=== PATIENT | male | born 1985 | race Caucasian/White ===

== ENCOUNTER 2016-12-17 11:17 | Emergency (ER) | payer SELFPAY ==
[~2016-12-17] VITALS: Ht 177.8 cm; Wt 104.2 kg
[~2016-12-17 11:17] MED LIST: HYDR-3533 PO; RANI150 PO; ZOFR4TAB3 PO
[2016-12-17 11:22] VITALS: BP 141/89; PULSE 70; RESP 16; TEMP 97.3; O2SAT 99
--- NOTE | 2016-12-17 11:55 | PD ---
HPI Chief Complaint: Injury Time Seen by Provider: 11:52 Travel History International Travel<30 days: No Contact w/Intl Traveler<30days: No Traveled to known affect area: No History of Present Illness HPI Patient presents with complaints of right shoulder pain. States he was riding skateboard last night when he swerved to miss a car and rolled onto his right shoulder. Denies any abrasions. Denies any head trauma. Denies any LOC. Pain was bearable last night however this morning he awoke with more pain and inability to lift his arm. PFSH Past Medical History Diminished Hearing: No ?: Not Social History Alcohol Use: Yes (OCC) Tobacco Use: No Substance Use: Yes (occ marijuana) Allergies-Medications (Allergen,Severity, Reaction): Coded Allergies: No Known Allergies (Verified , 12/17/16) Reported Meds & Prescriptions Reported Meds & Active Scripts Active Flexeril (Cyclobenzaprine HCl) 10 Mg Tab 10 Mg PO TID PRN Ultram (Tramadol HCl) 50 Mg Tab 50 Mg PO Q4H PRN Review of Systems General / Constitutional: No: Fever Eyes: No: Visual changes HENT: No: Headaches Cardiovascular: No: Chest Pain or Discomfort Respiratory: No: Shortness of Breath Gastrointestinal: No: Abdominal Pain Genitourinary: No: Dysuria Musculoskeletal: No: Pain Skin: No Rash Neurologic: No: Weakness Psychiatric: No: Depression Endocrine: No: Polydipsia Hematologic/Lymphatic: No: Easy Bruising Physical Exam Narrative GENERAL: Well-nourished, well-developed patient. SKIN: Focused skin assessment warm/dry. HEAD: Normocephalic. EYES: No scleral icterus. No injection or drainage. NECK: Supple, trachea midline. No JVD or lymphadenopathy. CARDIOVASCULAR: Regular rate and rhythm without murmurs, gallops, or rubs. RESPIRATORY: Breath sounds equal bilaterally. No accessory muscle use. GASTROINTESTINAL: Abdomen soft, non-tender, nondistended. Examination the right shoulder reveals no ecchymosis erythema or edema, no bony deformity, pain on abduction MUSCULOSKELETAL: No cyanosis, or edema. BACK: Nontender without obvious deformity. No CVA tenderness. Data Data Last Documented VS Vital Signs Date Time Temp Pulse Resp B/P Pulse Ox O2 Delivery O2 Flow Rate FiO2 12/17/16 11:22 97.3 70 16 141/89 99 Orders Shoulder, Limited(2vws) (12/17/16 ) MDM Medical Decision Making Medical Screen Exam Complete: Yes Emergency Medical Condition: Yes Differential Diagnosis Shoulder contusion, humeral fracture, clavicular fracture, AC joint separation Narrative Course Assessment and plan discussed with patient at bedside. Last 72 hours Impressions Shoulder X-Ray 12/17/16 0000 Signed Impressions: Service Date/Time: Saturday, December 17, 2016 12:32 - CONCLUSION: No acute disease. Yosef Marina MD Diagnosis Primary Impression: Contusion of right shoulder Qualified Code: S40.011A - Contusion of right shoulder, initial encounter Patient Instructions: General Instructions Additional Instructions: Nonsteroidal anti-inflammatories warm heat gentle stretching and strengthening and massage. Sling for comfort. Follow-up with PCP. Return to emergency with any onset of new symptoms. Med/Other Pt SpecificInfo: Prescription(s) given Scripts Cyclobenzaprine (Flexeril)10 Mg Tab10 Mg PO TID PRN (PAIN SCALE 1 TO 10) #20 TAB Ref 0 Prov:Carlos Obrien MD 12/17/16 Tramadol (Ultram)50 Mg Tab50 Mg PO Q4H PRN (PAIN) #20 TAB Ref 0 Prov:Carlos Obrien MD 12/17/16 Disposition: 01 DISCHARGE HOME Condition: Good Carlos Obrien MD Dec 17, 2016 11:55 Carlos Obrien MD Dec 17, 2016 11:55
--- NOTE | 2016-12-17 13:23 | RADRPT ---
EXAM DATE/TIME: 12/17/2016 12:32 [facility] COMPARISON: No previous studies available for comparison. INDICATIONS : Fell off skateboard last night, has right shoulder pain, limited ROM MEDICAL HISTORY : None. SURGICAL HISTORY : None. ENCOUNTER: Initial ACUITY: 1 day PAIN SCORE: 10/10 LOCATION: Right shoulder FINDINGS: Two view examination of the right shoulder demonstrates no evidence of fracture or dislocation. The glenohumeral and acromioclavicular joints are maintained. Bony mineralization is normal. CONCLUSION: No acute disease. Yosef Marina MD on December 17, 2016 at 13:21 Board Certified Radiologist. This report was verified electronically.
[2016-12-17] MEDS ORDERED: ULTR50TA5 PO (13:43)
[2016-12-17] MEDS ORDERED: CYCL1TAB29 PO (13:43)
== END 2016-12-17 13:53 | disposition home or self-care (01) ==
LOC: PHED 11:17
DX: S40.011A Contusion of right shoulder, initial encounter (principal); V00.131A Fall from skateboard, initial encounter; Y93.51 Activity, roller skating (inline) and skateboarding
CPT/HCPCS: 73030; 99284

== ENCOUNTER 2017-09-24 14:11 | Emergency (ER) | payer SELFPAY | END 2017-09-24 17:03 | disposition home or self-care (01) | LOC: PHEFT 14:11 | DX: S83.92XA Sprain of unspecified site of left knee, initial encounter (principal); W19.XXXA Unspecified fall, initial encounter; H66.90 Otitis media, unspecified, unspecified ear; F17.210 Nicotine dependence, cigarettes, uncomplicated; F12.90 Cannabis use, unspecified, uncomplicated | CPT/HCPCS: 73564; 99283 ==